=== PATIENT | male | born 1980 | race Caucasian/White ===

== ENCOUNTER 2016-10-08 13:56 | Emergency (ER) | payer OTHER ==
[2016-10-08 14:17] VITALS: RESP 17; TEMP 96.8
--- NOTE | 2016-10-08 16:58 | DI ---
History: Comparison: None Findings: There is no prevertebral soft tissue swelling There is no compression fracture There is no spondylolisthesis Intervertebral disc spaces are well maintained Lateral masses alignment. Dens intact. Impression Unremarkable plain film study of the cervical spine.
--- NOTE | 2016-10-08 18:40 | PDOC ---
Neck Pain / Injury HPI - General Chief Complaint: Neck / Back Complaint Stated Complaint: RIGHT NECK/SHOULDER PAIN STARTING WED Date Seen by Provider: 10/08/16 Time Seen by Provider: 14:10 Source: POSITIVE: Patient Exam Limitations: POSITIVE: No limitations Nurse's Notes Reviewed & Considered: Yes - History of Present Illness Initial Comments: The patient is a 36-year-old male. He states that 5 days ago he awoke with discomfort in the right paracervical area. He thinks that he "slept on my neck wrong". His neck pain is still present but is less. He has however developed some discomfort to the lateral aspect of the right shoulder, especially when he deviates his head to the left. He denies any discrete injuries. No fevers or chills. No muscular weakness or motor deficits. No GI or symptoms. No rashes or skin changes. No coughs. He says that his right shoulder pain is" sharp, and momentary. Body Location Affected: REPORTS: Upper Extremity (R) (Shoulder, as above), Neck Timing: REPORTS: Abrupt, Constant Severity: Moderate Quality: REPORTS: "Pain", Sharpness (Lateral aspect right shoulder) Duration: >24 hours (4-5 days) Context: REPORTS: Other (First noticed onset of right paracervical pain upon awakening) Recent Injury: REPORTS: No Location at Time of Onset: REPORTS: Home Concurrent Injuries: REPORTS: Neck Modifying Factors: improves with: Movement (Pain lateral aspect right shoulder produced by deviation of head to the left, and sometimes by turning head.) Associated Symptoms: REPORTS: Denies symptoms Similar Symptoms Previously: No Recent Care Received: REPORTS: Denies - Patient Home Medications Home Medications: Home Medications Lisinopril 1 tab PO DAILY #30 tab 06/29/16 Cyclobenzaprine HCl [Flexeril] 10 mg PO TID #21 tab 10/08/16 Ibuprofen 800 mg PO TID PRN 10/08/16 - Patient Allergies Allergies/Adverse Reactions: Allergies Allergy/AdvReac Type Severity Reaction Status Date / Time tuberculin, purified protein Allergy NOT Verified 10/08/16 14:07 deriva APPLICABLE Past Medical History - heen HEENT History: Denies History Cardiovascular History: Hypertension Respiratory History: Denies History Gastrointestinal History: Denies History Genitourinary History: Denies History Endocrine History: Denies History Musculoskeletal History: Denies History Prosthesis or Implant: No Neurological History: Denies History Blood Disorders: Denies History Psychiatric History: Denies History History of Sexually Transmitted Diseases: No Male Reproductive History: Denies History Cancer History: Denies History In Past Year Been Physically Harmed or Verbally Threatened: No (PER PATIENT) History of MDRO: No History of Other Communicable Diseases: No Tobacco Use: Former Smoker Alcohol Use: Occasionally Substance Use Type: None Previous Surgical History: No Significant Family History: No pertinent family hx Past Medical History Reviewed: Reviewed - No Changes ROS - Limitations ROS Limitations: No Limitations Constitution: REPORTS: Denies Symptoms Cardiovascular: REPORTS: Denies Cardiac Symptoms Respiratory: REPORTS: Denies Resp Symptoms Neurological: REPORTS: Denies Neuro Symptoms, Other (Probable redictate her symptoms right shoulder as above) Gastrointestinal: REPORTS: Denies GI Symptoms Endocrine: REPORTS: Denies Symptoms Musculoskeletal: REPORTS: Neck Pain (As above) Genitourinary: REPORTS: Denies Symptoms Eyes: REPORTS: Denies Symptoms ENT: REPORTS: Denies Symptoms Skin: REPORTS: Denies Skin Symptoms Lympathic: REPORTS: Denies Lympathic Symptoms Immunologic: POSITIVE: Denies Symptoms Psychiatric: POSITIVE: Denies Psych Symptoms Neck Pain/Injury Exam - General Appearance General Appearance: REPORTS: Alert, Cooperative, No Acute Distress, No Evidence of Trauma - HEENT HEENT: POSITIVE: Head Inspection Nml, Eyes Inspection Nml, Ears Inspection Nml, Nose Inspection Nml, Oral/Dental Inspect. Nml, Pharynx Inspect. Nml, PERRL, EOMI - Neck Neck: POSITIVE: Thyroid Normal, Nexus Criteria Negative, Muscle Spasm (Right paracervical musculature), See Diagram. NEGATIVE: Decreased ROM, Lymphadenopathy, Thyromegaly, Pain w/ Axial Compression, Subcutaneous Emphysema , Midline Tenderness, Distracting Injury, Altered Mental Status, Recent ETOH, Focal Neuro Defit - Back Back: REPORTS: Normal Inspection, No CVA Tenderness, Non Tender, Painless ROM, No Vertebral Tenderness - Respiratory / CVS Respiratory / CVS: POSITIVE: Chest Non Tender, No Ecchymosis, Breath Sounds Normal, No Respiratory Distress, Heart Sounds Normal, Regular Rate/Rhythm - Skin Skin: REPORTS: Intact, Normal For Race, Warm, Dry, No Rash - Extremities Extremity Assessment: Non-Tender: (ALL), Normal ROM: (ALL), No Edema: (ALL), Normal Inspection: (ALL), No Swelling: (ALL) Additional Extremity Details: Examination of the right shoulder shows range of motion of the shoulder to be intact. Distal pulses are full and symmetrical. No sensory or motor deficits. All aspects of the shoulder are nontender on palpation. Peripheral Pulses: Radial (R): 2+, Radial (L): 2+ - Neurological / Psychological Neuro / Psych: POSITIVE: Oriented x3, Motor Normal, Sensation Normal, [employer] Normal, [employer] Symmetrical, Reflexes Normal, Mood Appropriate, Affect Appropriate Images - Complete Complete: 1 - Mild discomfort on palpation with some muscle spasm 2 - Sharp pain in this area of right shoulder when head is deviated to the left. Neck Pain/Injury Progress - Results Reviewed by me Xrays/CTs/US Reviewed by me: Yes Discussed with Radiologist: No Radiology Findings: X-ray cervical spine normal by my interpretation; radiologist interpretation pending. - Patient's Progress Pain Medication Addressed: POSITIVE: Yes (Ibuprofen 4-600 mg 3 times daily; Flexeril 10 mg 3 times daily.) School/Work Release Addressed: POSITIVE: Not Applicable Re-Examine Time: 15:05 Status: POSITIVE: Unchanged - Consult Counseled: POSITIVE: Patient, Family (), RE: Radiology Results, RE: DX, RE: Need for F/U Patient Care Time - Estimated PCT Patient Care Time (In Minutes): 25 Vital Signs - Recent Vital Signs Vital Signs: Vital Signs (Last 8 hours) Temp Pulse Resp BP Pulse Ox 10/08/16 13:56 96.8 F 75 17 141/92 95 - VS Reviewed Vital Signs Reviewed: Yes Discharge Clinical Impression: Cervical muscle strain Discharge Disposition: Discharged to Home Condition: Stable Prescriptions / Orders: Cyclobenzaprine HCl [Flexeril] 10 mg PO TID #21 tab Patient Instructions Given at Discharge: Cervical Strain (ED), Cervical Radiculopathy (ED) Additional Instructions: I think that you have a strain to the musculature on the right side of your neck with some spasm. This is probably compressing one of the cervical nerves which is causing you intermittent pain in your right shoulder. I believe you' re going to be fine. Please apply warm moist compresses to the right sided your neck. Ibuprofen, 400-600 mg every 8 hours. Flexeril one every 8 hours. Return anytime if condition worsens. Follow-up with your primary care provider. Follow Up With: ROSA OQUENDO [Primary Care Provider] - (Instructions as above. Return anytime if condition worsens. Follow-up with your primary care provider.)
== END 2016-10-08 15:21 | disposition home or self-care (01) ==
LOC: ER 13:56
DX: S16.1XXA Strain of muscle, fascia and tendon at neck level, initial encounter (principal); M25.511 Pain in right shoulder; I10 Essential (primary) hypertension
CPT/HCPCS: 72040; 99282